=== PATIENT | male | born 1960 | race African-American/Black ===

== ENCOUNTER 2018-02-08 17:04 | Emergency (ER) | payer SELFPAY ==
[2018-02-08] MEDS ORDERED: Ibuprofen TAB* 800 MG PO ONE (20:09)
--- NOTE | 2018-02-08 20:12 | ED ---
Upper Extremity Pain - HPI Summary HPI Summary: Patient complains of recurrence of left shoulder and left neck pain after starting to work out 2 weeks ago. Pain worse for the past 2 days. Patient states history of same symptoms when he used to lift weights year ago. Patient states he stopped lifting weights upcoming shoulder repair itself. Denies any other trauma, SOB fever, cough, sore throat, CP, SOB, N/V/D, abdominal pain, change in urinae or BM. History is none. - History of Current Complaint Chief Complaint: EDShoulderClavicleInj Stated Complaint: LT SHOULDERT AND NECK PAIN Time Seen by Provider: 02/08/18 18:38 Hx Obtained From: Patient Mechanism Of Injury: Unknown Onset/Duration: Started Days Ago Timing: Constant Severity Initially: Mild Severity Currently: Moderate Pain Location: Shoulder Character: Aching Aggravating Factor(s): Movement Alleviating Factor(s): Nothing Associated Signs & Symptoms: Positive: Neck Pain - Allergies/Home Medications Allergies/Adverse Reactions: Allergies Allergy/AdvReac Type Severity Reaction Status Date / Time No Known Allergies Allergy Verified 02/08/18 17:25 PMH/Surg Hx/FS Hx/Imm Hx Endocrine/Hematology History: Denies: Hx Anticoagulant Therapy, Hx Diabetes Cardiovascular History: Denies: Hx Cardiac Arrest History: Denies: Hx Dialysis Neurological History: Denies: Hx CVA Infectious Disease History: No Infectious Disease History: Reports: Traveled Outside the [place] in Last 30 Days - [place] - Family History Known Family History: Negative: Renal Disease, Seizure Disorder Family History: No FHx of [place] - Social History Alcohol Use: Rare Hx Substance Use: No Substance Use Type: Reports: None Smoking Status (MU): Never Smoked Tobacco Review of Systems Constitutional: Negative Eyes: Negative ENT: Negative Cardiovascular: Negative Respiratory: Negative Gastrointestinal: Negative Genitourinary: Negative Positive: Arthralgia Skin: Negative Neurological: Negative Psychological: Normal All Other Systems Reviewed And Are Negative: Yes Physical Exam - Summary Physical Exam Summary: No erythema, extra warmth, ecchymosis, deformity, extra warmth, swelling noted to left shoulder, left clavicle, left upper extremity. Pain with palpation along left sternocleidomastoid, left trapezius, left scapular muscles. Pain with rearward movement of left arm. PMS intact distally Triage Information Reviewed: Yes Vital Signs On Initial Exam: Initial Vitals Temp Pulse Resp BP Pulse Ox 98.3 F 56 16 124/100 97 02/08/18 17:21 02/08/18 17:21 02/08/18 17:21 02/08/18 17:21 02/08/18 17:21 Vital Signs Reviewed: Yes Appearance: Positive: Well-Appearing Skin: Positive: Warm Head/Face: Positive: Normal Head/Face Inspection Eyes: Positive: Normal Neck: Positive: Supple Respiratory/Lung Sounds: Positive: Clear to Auscultation Cardiovascular: Positive: Normal Abdomen Description: Positive: Nontender Male Genital Exam: Positive: Normal Genitalia Musculoskeletal: Positive: Normal Neurological: Positive: Normal Psychiatric: Positive: Normal AVPU Assessment: Alert - [place] Coma Scale Best Eye Response: 4 - Spontaneous Best Motor Response: 6 - Obeys Commands Best Verbal Response: 5 - Oriented Coma Scale Total: 15 Diagnostics - Vital Signs Vital Signs Temp Pulse Resp BP Pulse Ox 02/08/18 17:21 98.3 F 56 16 124/100 97 - Laboratory Lab Statement: Any lab studies that have been ordered have been reviewed, and results considered in the medical decision making process. - Radiology shoulder Xray Interpretation: No Acute Changes Radiology Interpretation Completed By: ED Physician clavicle Xray Interpretation: No Acute Changes Radiology Interpretation Completed By: ED Physician Course/Dx - Course Course Of Treatment: Patient complains of recurrence of left shoulder and left neck pain after starting to work out 2 weeks ago. Pain worse for the past 2 days. Patient states history of same symptoms when he used to lift weights year ago. Patient states he stopped lifting weights upcoming shoulder repair itself. Denies any other trauma, SOB fever, cough, sore throat, CP, SOB, N/V/D , abdominal pain, change in urinae or BM. History is none. Physical exam:No erythema, extra warmth, ecchymosis, deformity, extra warmth, swelling noted to left shoulder, left clavicle, left upper extremity. Pain with palpation along left sternocleidomastoid, left trapezius, left scapular muscles. Pain with rearward movement of left arm. PMS intact distally. X-ray shoulder and clavicle negative. Patient advised ice, ibuprofen. 5 mg by mouth for muscle spasm. Follow-up with orthopedics if pain does not improve - Diagnoses Provider Diagnoses: Shoulder pain, left, Muscle spasm Discharge - Sign-Out/Discharge Documenting (check all that apply): Patient Departure - Discharge Plan Condition: Stable Disposition: HOME Prescriptions: Diazepam TAB(*) [Valium TAB(*)] 5 mg PO TID PRN #4 tab MDD 3 tabs PRN Reason: Pain Patient Education Materials: Muscle Spasm (ED), Shoulder Pain (ED) Referrals: No Primary Care Phys,NOPCP [Primary Care Provider] - Jamshid Stephenson MD [Medical Doctor] - Additional Instructions: Ice, ibuprofen for pain and swelling. Follow-up with orthopedics Dr. Stephenson if pain does not improve in a few days. Return to the ED for any new or worsening symptoms - Billing Disposition and Condition Condition: STABLE Disposition: Home
[2018-02-08] MEDS ORDERED: Diazepam TAB(*) 5 MG PO ONE (20:17)
[2018-02-08 20:22] VITALS: BP 0/0
--- NOTE | 2018-02-09 07:25 | RAD ---
INDICATION: Left clavicle trauma. TECHNIQUE: 2 views of the left clavicle were obtained. FINDINGS: The bones are in normal alignment. No fracture is seen. Joint spaces appear maintained. IMPRESSION: NO EVIDENCE FOR FRACTURE. R0
--- NOTE | 2018-02-09 07:27 | RAD ---
INDICATION: Left shoulder injury. TECHNIQUE: 4 views of the left shoulder were obtained. FINDINGS: The bones are in normal alignment. No fracture is seen. Joint spaces appear maintained. IMPRESSION: NO EVIDENCE OF FRACTURE. R0
== END 2018-02-08 20:15 | disposition home or self-care (01) ==
LOC: ED 17:04
DX: M25.512 Pain in left shoulder (principal); M62.838 Other muscle spasm; X58.XXXA Exposure to other specified factors, initial encounter; Y93.B9 Activity, other involving muscle strengthening exercises; Y92.9 Unspecified place or not applicable
CPT/HCPCS: 99281; A9270-GY